=== PATIENT | male | born 1950 | race Caucasian/White ===

== ENCOUNTER 2021-04-06 08:06 | Inpatient (IN) | payer MEDICARE, BC ==
[~2021-04-06] VITALS: Ht 175.3 cm; Wt 65.5 kg
--- NOTE | 2021-04-06 08:22 | NUR ---
SANDRA FOR SEVERE R. HIP AFTER HAVING SYNCOPE EPISODE YESTERDAY IN WHICH HE FELL ON R. HIP. PT STATES HE DID HIT HEAD, DENIES PENN AND NEURO SYMPTOMS. PT DENIES BLOOD THINNERS. PT ATTACHED TO MONITORS VSS. NADN. DR. SCHMIDT EVALUATED
[2021-04-06] MEDS ORDERED: ONDANSETRON 2MG/ML, 2ML IVPush ONE (08:30)
[2021-04-06] MEDS ORDERED: SODIUM CHLORIDE FLUSH 10ML SYR IVF ONE (08:30)
[2021-04-06] MEDS ORDERED: MORPHINE SULFATE 4 MG/ML, 1ML IVPush ONE (08:30)
[2021-04-06] MEDS ORDERED: ONDANSETRON 2MG/ML, 2ML ONE ×2 (08:56→20:59)
--- NOTE | 2021-04-06 09:00 | NUR ---
PT BACK FROM XRAY, MEDICATED PER EMAR, STATES HE DOES NO WANT PAIN MEDS AT THIS TIME, VSS
[2021-04-06 09:17] LABS: BASOPHILS % (AUTO) 1 % (0-1); EOSINOPHILS % (AUTO) 1 % (1-7); LYMPHOCYTES % (AUTO) 8 % (22-44); MEAN CORPUSCULAR HEMOGLOBIN 35.6 pg (27.5-34.5); MEAN CORPUSCULAR HGB CONC 34.7 g/dL (33.2-36.2); MEAN PLATELET VOLUME 7.4 fL (7.4-10.4); MONOCYTES % (AUTO) 8 % (2-9); NEUTROPHILS % (AUTO) 83 % (42-75); PLATELET COUNT 189 x10^3/uL (130-400); RED BLOOD COUNT 5.03 x10^6/uL (4.38-5.82); RED CELL DISTRIBUTION WIDTH 15.6 % (9.4-14.8)
[2021-04-06 09:27] LABS: ALANINE AMINOTRANSFERASE 59 U/L (12-78); ALBUMIN 3.1 g/dL (3.4-5.0); ANION GAP 10 mmol/L (5-15); CALCIUM 8.2 mg/dL (8.5-10.1); CHLORIDE 105 mmol/L (98-107); CREATININE 0.63 mg/dL (0.7-1.3)
--- NOTE | 2021-04-06 09:28 | NUR ---
PT BROTHER AT BEDSIDE. VSS. REILLY.
[2021-04-06 09:29] LABS: ALKALINE PHOSPHATASE 116 U/L (45-117); TOTAL PROTEIN 6.5 g/dL (6.4-8.2)
[2021-04-06] MEDS ORDERED: ALBUTEROL/IPRATROPIUM 2.5MG/0.5MG, 3 ML ONE (09:37)
[2021-04-06] MEDS ORDERED: MORPHINE SULFATE 4 MG/ML, 1ML ONE (10:24)
--- NOTE | 2021-04-06 10:27 | NUR ---
PT MEDICATED PER EMAR FOR PAIN. VSS
--- NOTE | 2021-04-06 11:18 | NUR ---
REPORT CALLED TO GILMA MULLIGAN
[2021-04-06] MEDS ORDERED: SODIUM CHLORIDE 0.9% 1,000 ML IV SCH (12:00)
[2021-04-06] MEDS ORDERED: ONDANSETRON ODT 4 MG PO PRN (12:00)
[2021-04-06] MEDS ORDERED: ONDANSETRON 2MG/ML, 2ML IVPush PRN ×2 (12:00→20:00)
[2021-04-06] MEDS ORDERED: PROMETHAZINE 25 MG/ML, 1ML IM PRN (12:00)
[2021-04-06] MEDS ORDERED: hydrALAzine 20 MG/ML, 1ML IVPush PRN (12:00)
--- NOTE | 2021-04-06 12:21 | NUR ---
PT TRANSFERED TO CARD TELE VIA [employer] ON MONITOR WITH ALL BELONGINGS
[2021-04-06] MEDS ORDERED: LORazepam 1MG TABLET PO ONE (13:00)
[2021-04-06] MEDS ORDERED: LORazepam 2 MG/ML, 1ML IVPush ONE (13:00)
[2021-04-06] MEDS: OXYcodone IR 5MG TABLET PO PRN (13:11)
[2021-04-06] MEDS: NICOTINE 14MG/24 HR PATCH.TD24 TD SCH (13:11)
[2021-04-06 13:29] VITALS: BP 164/96
[2021-04-06 13:58] VITALS: BP 163/100
[2021-04-06] MEDS: LOSARTAN 50MG TABLET PO SCH (15:30)
[2021-04-06] MEDS ORDERED: ALBUTEROL/IPRATROPIUM 2.5MG/0.5MG, 3 ML NPPB PRN (15:30)
[2021-04-06] MEDS ORDERED: OMNIPAQUE 350 MG/ML, 75ML BOTTLE ONE (19:13)
[2021-04-06] MEDS ORDERED: MIDAZOLAM 1 MG/ML, 2ML ONE (19:58)
[2021-04-06] MEDS ORDERED: FENTANYL PF 250 MCG/5ML ONE (19:58)
[2021-04-06] MEDS ORDERED: hydrALAzine 20 MG/ML, 1ML IV PRN (20:00)
[2021-04-06] MEDS ORDERED: MEPERIDINE/PF 25MG/0.5ML IVPush PRN (20:00)
[2021-04-06] MEDS ORDERED: LABETALOL 5MG/ML, 20ML IV PRN (20:00)
[2021-04-06] MEDS ORDERED: OXYcodone 5 MG/5 ML ORAL.SOL UDC PO PRN ×2 (20:00→23:30)
[2021-04-06] MEDS ORDERED: PROMETHAZINE 25 MG/ML, 1ML IVPush PRN (20:00)
[2021-04-06] MEDS ORDERED: ACETAMINOPHEN 325 MG TABLET PO PRN (20:00)
[2021-04-06] MEDS ORDERED: HYDROmorphone 1 MG/ML, 1ML INJ IVPush PRN (20:00)
[2021-04-06] MEDS ORDERED: PHENYLEPHRINE 10 MG/ML ONE (20:17)
[2021-04-06] MEDS ORDERED: SUCCINYLCHOLINE 20 MG/ML, 10ML ONE (20:19)
[2021-04-06] MEDS ORDERED: PROPOFOL 10 MG/ML, 20ML ONE (20:19)
[2021-04-06] MEDS ORDERED: CEFAZOLIN 1,000 MG ONE (20:20)
[2021-04-06] MEDS ORDERED: DEXAMETHASONE 4 MG/ML, 1ML ONE (20:59)
[2021-04-06] MEDS ORDERED: FENTANYL PF 100 MCG/2ML ONE (21:33)
[2021-04-06] MEDS ORDERED: OXYcodone 5 MG/5 ML ORAL.SOL UDC ONE ×2 (21:33→22:37)
[2021-04-06] MEDS: FENTANYL PF 100 MCG/2ML IV PRN ×3 (21:50→22:05)
[2021-04-06 22:45] VITALS: BP 129/88
[2021-04-07] MEDS: CEFAZOLIN PMX 2GM/50ML 50 ML IVPB SCH ×2 (00:29→07:56)
[2021-04-07] MEDS: morphine SULFATE 10 MG/ML, 1ML IVPush PRN ×3 (00:35→15:31)
[2021-04-07 01:12] VITALS: BP 135/96
[2021-04-07 05:20] LABS: CHLORIDE 101 mmol/L (98-107)
[2021-04-07 05:21] LABS: BASOPHILS % (AUTO) 1 % (0-1); EOSINOPHILS % (AUTO) 0 % (1-7); LYMPHOCYTES % (AUTO) 3 % (22-44); MEAN CORPUSCULAR HEMOGLOBIN 35.5 pg (27.5-34.5); MEAN CORPUSCULAR HGB CONC 34.5 g/dL (33.2-36.2); MEAN PLATELET VOLUME 8.4 fL (7.4-10.4); MONOCYTES % (AUTO) 5 % (2-9); NEUTROPHILS % (AUTO) 92 % (42-75); PLATELET COUNT 153 x10^3/uL (130-400); RED BLOOD COUNT 4.79 x10^6/uL (4.38-5.82); RED CELL DISTRIBUTION WIDTH 15.8 % (9.4-14.8)
[2021-04-07 05:28] LABS: ALANINE AMINOTRANSFERASE 49 U/L (12-78); ALBUMIN 2.7 g/dL (3.4-5.0); ALKALINE PHOSPHATASE 105 U/L (45-117); ANION GAP 9 mmol/L (5-15); BILIRUBIN,TOTAL 0.9 mg/dL (0.2-1.0); CALCIUM 7.9 mg/dL (8.5-10.1); CHOL/HDL RATIO 1.4; CHOLESTEROL, TOTAL 135 mg/dL (140-239); CREATININE 0.72 mg/dL (0.7-1.3); HDL CHOL % 72 % (26-37); HDL CHOLESTEROL (DIRECT) 97 mg/dL (40-60); LDL CHOLESTEROL,CALCULATED 26 mg/dL (54-169); LDL/HDL RATIO 0.3 (0.5-3.0); TOTAL PROTEIN 6.3 g/dL (6.4-8.2); TRIGLYCERIDES 62 mg/dL (50-200); VLDL CHOLESTEROL 12 mg/dL (0-25)
[2021-04-07] MEDS: OXYcodone IR 5MG TABLET PO PRN ×2 (05:44→22:33)
[2021-04-07 07:30] VITALS: BP 151/85
[2021-04-07] MEDS: LOSARTAN 50MG TABLET PO SCH (09:04)
[2021-04-07 10:32] VITALS: BP 134/92
[2021-04-07 12:36] VITALS: BP 146/80
[2021-04-07] MEDS: NICOTINE 14MG/24 HR PATCH.TD24 TD SCH (13:16)
[2021-04-07 15:28] VITALS: BP 133/85
[2021-04-07] MEDS: ALBUTEROL/IPRATROPIUM 2.5MG/0.5MG, 3 ML NPPB SCH ×2 (18:00→21:00)
[2021-04-07] MEDS: ENOXAPARIN 40 MG/0.4 ML SQ SCH (18:39)
[2021-04-07 18:52] VITALS: BP 93/62
[2021-04-08 01:23] VITALS: BP 114/69
[2021-04-08] MEDS: OXYcodone IR 5MG TABLET PO PRN (05:05)
[2021-04-08 06:47] VITALS: BP 127/78
[2021-04-08] MEDS: ALBUTEROL/IPRATROPIUM 2.5MG/0.5MG, 3 ML NPPB SCH ×4 (07:21→19:13)
[2021-04-08] MEDS: LOSARTAN 50MG TABLET PO SCH (08:35)
[2021-04-08] MEDS: DOXYCYCLINE 100MG TABLET PO SCH ×2 (09:09→20:08)
[2021-04-08] MEDS: ASPIRIN 81 MG TABLET EC PO SCH (09:09)
[2021-04-08 09:41] LABS: TROPONIN I < 0.015 ng/mL (0.000-0.045)
[2021-04-08 12:34] LABS: TROPONIN I < 0.015 ng/mL (0.000-0.045)
[2021-04-08 12:45] VITALS: BP 128/80
[2021-04-08] MEDS: NICOTINE 14MG/24 HR PATCH.TD24 TD SCH (12:55)
[2021-04-08] MEDS ORDERED: OXYcodone 5 MG/5 ML ORAL.SOL UDC PO PRN (13:30)
[2021-04-08] MEDS ORDERED: POLYETHYLENE GLYCOL 17 GM PACKET PO PRN (13:30)
[2021-04-08] MEDS ORDERED: morphine SULFATE 10 MG/ML, 1ML IVPush PRN (13:30)
[2021-04-08] MEDS ORDERED: REGADENOSON 0.4 MG/5 ML SYRINGE ONE (14:12)
[2021-04-08 16:47] VITALS: BP 118/76
[2021-04-08] MEDS: morphine SULFATE 10 MG/ML, 1ML IVPush PRN ×2 (16:50→21:34)
[2021-04-08] MEDS: ENOXAPARIN 40 MG/0.4 ML SQ SCH (17:59)
[2021-04-08 18:51] VITALS: BP 104/65
[2021-04-08] MEDS: GUAIFENESIN ER 600 MG TABLET PO SCH (20:08)
[2021-04-08] MEDS: SENNA/DOCUSATE TABLET PO SCH (20:08)
[2021-04-09 01:24] VITALS: BP 147/83
[2021-04-09] MEDS: ASPIRIN 81 MG TABLET EC PO SCH (05:12)
[2021-04-09] MEDS: ALBUTEROL/IPRATROPIUM 2.5MG/0.5MG, 3 ML NPPB SCH ×4 (07:15→18:38)
[2021-04-09 08:01] VITALS: BP 150/92
[2021-04-09] MEDS: GUAIFENESIN ER 600 MG TABLET PO SCH ×2 (08:36→21:53)
[2021-04-09] MEDS: SENNA/DOCUSATE TABLET PO SCH ×2 (08:36→21:53)
[2021-04-09] MEDS: LOSARTAN 50MG TABLET PO SCH (08:36)
[2021-04-09] MEDS: DOXYCYCLINE 100MG TABLET PO SCH ×2 (08:36→21:53)
[2021-04-09] MEDS: ACETAMINOPHEN 325 MG TABLET PO PRN ×2 (11:19→18:25)
[2021-04-09] MEDS: NICOTINE 14MG/24 HR PATCH.TD24 TD SCH (13:21)
[2021-04-09 13:46] VITALS: BP 99/64
[2021-04-09] MEDS: ENOXAPARIN 40 MG/0.4 ML SQ SCH (18:16)
[2021-04-09 21:45] VITALS: BP 167/94
[2021-04-09] MEDS: OXYcodone IR 5MG TABLET PO PRN (21:54)
[2021-04-10] MEDS: OXYcodone IR 5MG TABLET PO PRN ×3 (02:24→22:40)
[2021-04-10 02:25] VITALS: BP 142/84
[2021-04-10] MEDS: ASPIRIN 81 MG TABLET EC PO SCH (05:17)
[2021-04-10 06:50] VITALS: BP 170/95
[2021-04-10] MEDS: ALBUTEROL/IPRATROPIUM 2.5MG/0.5MG, 3 ML NPPB SCH ×4 (06:50→20:04)
[2021-04-10] MEDS: DOXYCYCLINE 100MG TABLET PO SCH ×2 (09:03→20:24)
[2021-04-10] MEDS: GUAIFENESIN ER 600 MG TABLET PO SCH ×2 (09:04→20:24)
[2021-04-10] MEDS: SENNA/DOCUSATE TABLET PO SCH ×2 (09:04→20:24)
[2021-04-10] MEDS: LOSARTAN 50MG TABLET PO SCH (09:04)
[2021-04-10] MEDS: NICOTINE 14MG/24 HR PATCH.TD24 TD SCH (13:31)
[2021-04-10 13:57] VITALS: BP 102/68
[2021-04-10] MEDS: ENOXAPARIN 40 MG/0.4 ML SQ SCH (17:53)
[2021-04-10 20:02] VITALS: BP 155/72
[2021-04-11 01:08] VITALS: BP 149/77
[2021-04-11] MEDS: ASPIRIN 81 MG TABLET EC PO SCH (05:42)
[2021-04-11 06:03] LABS: CREATININE 0.48 mg/dL (0.7-1.3)
[2021-04-11 06:34] VITALS: BP 133/79
[2021-04-11] MEDS: ALBUTEROL/IPRATROPIUM 2.5MG/0.5MG, 3 ML NPPB SCH ×2 (07:00→12:00)
[2021-04-11] MEDS: DOXYCYCLINE 100MG TABLET PO SCH (07:49)
[2021-04-11] MEDS: LOSARTAN 50MG TABLET PO SCH (07:49)
[2021-04-11] MEDS: GUAIFENESIN ER 600 MG TABLET PO SCH (07:49)
[2021-04-11] MEDS: SENNA/DOCUSATE TABLET PO SCH (07:49)
[2021-04-11 12:24] VITALS: BP 124/71
[2021-04-11] MEDS: NICOTINE 14MG/24 HR PATCH.TD24 TD SCH (13:25)
[2021-04-11] MEDS ORDERED: OXYC1TAB14 PO (14:30)
[2021-04-11] MEDS ORDERED: ASPI81TA45 PO (14:30)
[2021-04-11] MEDS ORDERED: LOSA50TA2 PO (14:30)
== END 2021-04-11 15:25 | disposition home or self-care (01) | DRG 480 ==
LOC: ED 10:19 → EDIP 10:40 → 5SO 12:28 → 3N 04-10 17:51 → DCLOUNGE 04-11 15:19
PROVIDERS: ADMIT Family Medicine; ATTEND Family Medicine
PROC: 0QH606Z Insertion of Intramedullary Internal Fixation Device into Right Upper Femur, Open Approach (ICD-10-PCS; principal; 2021-04-06 18:30)
DX: S72.144A Nondisplaced intertrochanteric fracture of right femur, initial encounter for closed fracture (principal); J96.01 Acute respiratory failure with hypoxia; F17.210 Nicotine dependence, cigarettes, uncomplicated; H54.7 Unspecified visual loss; I11.0 Hypertensive heart disease with heart failure; I25.2 Old myocardial infarction; I27.20 Pulmonary hypertension, unspecified; I48.91 Unspecified atrial fibrillation; I50.9 Heart failure, unspecified; I65.29 Occlusion and stenosis of unspecified carotid artery; J44.9 Chronic obstructive pulmonary disease, unspecified; Z91.14 Patient's other noncompliance with medication regimen; W18.39XA Other fall on same level, initial encounter; Y93.89 Activity, other specified; Y92.89 Other specified places as the place of occurrence of the external cause; Y99.8 Other external cause status; Z20.822 Contact with and (suspected) exposure to COVID-19
CPT/HCPCS: 36415; 71045; 71275; 76000; 78452; 80053; 80061; 82565; 83036; 83735; 84100; 84443; 84484; 85025; 85379; 87635; 93005; 93017; 93308; 93321; 93325; 93880; 94640; C1713; G0378; J0690; J1100; J1650; J2250; J2405; J2704; J2785; J3010; Q0162; Q9967; A9502; J0330; J2060; J2270; J2370; J7030